=== PATIENT | female | born 1975 | race African-American/Black ===

== ENCOUNTER → 2016-10-04 | Outpatient (CLI) | payer BC ==
--- NOTE | ~2016-10-04 | MY29 ---
[facility] A Service of [facility] RADIOLOGY TEXT RESULTS PATIENT: REBECCA FORBES V LOCATION: [facility] : 71 UNIT #: [id number] AGE: [address]: Marcia Regan SEX: F ORDER DR: [id number] [facility] [address] [place], [place] [address] [id number] O MR#: [id number] Acc #: [id number] NAME: REBECCA FORBES : 1975 SEX: F STUDY DATE/TIME: 10/04/2016 16:30 UNIT: [facility] ROOM: STUDY DESCRIPTION: MY PAIGE SCREENING W/ CAD BILAT Attending Physician: Marcia Regan M.D. Referring Physician: Marcia Regan M.D. Ordering Physician: Marcai Regan M.D. Primary Care Physician: Reny Shannon M.D. MEDICAL IMAGING REPORT This report is preliminary unless electronic signature is present EXAM Digital screening mammogram, 10/04/2016; [facility]. HISTORY 40-year-old woman, no risk elevation, annual screen. COMPARISON 11/21/2008, 08/03/2015. FINDINGS Digital imaging of each breast was completed utilizing a two-view examination of each breast in craniocaudal and mediolateral-oblique projections. Review and interpretation of digital mammograms include a second review in conjunction with FDA-approved CAD device. There is a normal parenchymal presentation bilaterally consistent with the patient's age. There are no breast masses imaged and no parenchymal asymmetry is visualized. There are no suspicious microcalcifications and I see no focal architectural disturbance. IMPRESSION Negative screening digital mammogram. One-year followup recommended. Patients over the age of 40 are entered into a reminder system with target due date for the next mammogram. A result letter will also be sent to the patient. BIRADS: 1 Negative. Dictated by... Thomas Jenkins M.D. [facility] A Service of [facility] RADIOLOGY TEXT RESULTS PATIENT: REBECCA FORBES V LOCATION: [facility] : 71 UNIT #: [id number] AGE: [address]: Marcia Regan SEX: F ORDER DR: THIS IS AN ELECTRONICALLY VERIFIED REPORT Thomas Jenkins M.D. at 10/07/2016 7:07 AM Ramo TD: 10/04/2016 20:43 JOB #: [id number] MEDICAL IMAGING REPORT Page 1 of 1 COPY
== END | disposition home or self-care (01) ==
LOC: CWCC 16:13
DX: Z12.31 Encounter for screening mammogram for malignant neoplasm of breast (principal)
CPT/HCPCS: G0202